=== PATIENT | female | born 1955 | race Caucasian/White ===

== ENCOUNTER 2024-06-14 11:35 | Emergency (ER) | payer MEDICARE, OTHER ==
[2024-06-14] MEDS: Ondansetron 4 MG/2 ML SDV IVPUSH ONE (12:11)
[2024-06-14] MEDS: Morphine 4 MG/ML Syringe IVPUSH ONE (12:13)
[2024-06-14 12:16] LABS: BASOPHILS PERCENT AUTO 0.4 % (0.0-1.0); EOSINOPHILS PERCENT AUTO 1.1 % (1.0-3.0); HEMATOCRIT 42.1 % (37.0-47.0); HEMOGLOBIN 14.3 g/dL (12.0-16.0); LYMPHOCYTES PERCENT AUTO 8.9 % (20.5-50.1); MEAN CORPUSCULAR HEMOGLOBIN 30.2 pg (27.0-34.0); MEAN CORPUSCULAR VOLUME 88.8 fL (80-100); MONOCYTES PERCENT AUTO 8.1 % (2-8); NEUTROPHILS PERCENT AUTO 81.5 % (42.2-75.2); PLATELET COUNT,PLT 295 10^3/uL (150-450); RED BLOOD CELL COUNT 4.74 10^6/uL (4.2-5.4)
[2024-06-14] MEDS: Sodium Chloride 0.9% 1,000 ML IV ONE (12:18)
[2024-06-14 12:36] LABS: A/G RATIO 1.3; ALBUMIN 3.9 g/dL (3.4-5.0); ANION GAP 13.8 mEq/L (7-13); BILIRUBIN TOTAL 0.7 mg/dL (0.2-1.0); BUN/CREATININE RATIO 14.4 (No establ ref range); CALCIUM 10.5 mg/dL (8.5-10.1); CREATININE 0.97 mg/dL (0.55-1.02); EST CRCL DRUG DOSING (CG) 54.73 mL/min; POTASSIUM,K 3.8 mmol/L (3.5-5.1); PROTEIN TOTAL,TP 6.9 g/dL (6.4-8.2)
[2024-06-14] MEDS: Propofol 200 MG/20 ML SDV IVPUSH ONE (12:44)
== END 2024-06-14 15:15 ==
LOC: DL.ED 11:35
DX: S82.851A Displaced trimalleolar fracture of right lower leg, initial encounter for closed fracture (principal); X58.XXXA Exposure to other specified factors, initial encounter
CPT/HCPCS: 27818; 36415; 73600-RT; 73610-RT; 80053; 85025; 96374; 96375; 99283-25; J2270; J2405; J2704; J7030